=== PATIENT | female | born 1950 | race Native Hawaiian/Other Pacific Islander ===

== ENCOUNTER 2018-06-12 16:39 | Emergency (ER) | payer OTHER ==
[~2018-06-12] VITALS: Ht 167.6 cm; Wt 113.4 kg
[2018-06-12] MEDS ORDERED: LEVO0.1519 PO (16:56)
[2018-06-12] MEDS ORDERED: NEOM0.1O TD (17:18)
[2018-06-12 18:08] LABS: PLATELET COUNT 279 K/uL (152-353)
[2018-06-12 20:19] VITALS: BP 131/83; TEMP 98.3
== END 2018-06-12 20:20 | disposition home or self-care (01) ==
LOC: ED 16:39
DX: S29.012A Strain of muscle and tendon of back wall of thorax, initial encounter (principal); S39.012A Strain of muscle, fascia and tendon of lower back, initial encounter; X50.0XXA Overexertion from strenuous movement or load, initial encounter; Y92.89 Other specified places as the place of occurrence of the external cause; Z79.899 Other long term (current) drug therapy
CPT/HCPCS: 36415; 80053; 81000; 82550; 82553; 84443; 84484; 85027; 85651; 93005; 96374; 99284; J1885

== ENCOUNTER 2018-06-16 15:33 | Emergency (ER) | payer OTHER ==
[~2018-06-16] VITALS: Ht 167.6 cm; Wt 113.4 kg
[~2018-06-16 15:33] MED LIST: LEVO0.1519 PO; NEOM0.1O TD
[2018-06-16 15:36] VITALS: TEMP 98.1
[2018-06-16 16:26] LABS: PLATELET COUNT 252 K/uL (152-353)
[2018-06-16 16:31] LABS: POTASSIUM 4.4 mmol/L (3.6-5.2); SODIUM 140 mmol/L (136-145)
[2018-06-16 18:12] VITALS: BP 148/74
== END 2018-06-16 18:13 | disposition home or self-care (01) ==
LOC: ED 15:33
PROVIDERS: Emergency Medicine
DX: K27.9 Peptic ulcer, site unspecified, unspecified as acute or chronic, without hemorrhage or perforation (principal); B96.81 Helicobacter pylori [H. pylori] as the cause of diseases classified elsewhere
CPT/HCPCS: 36415; 80053; 82550; 84484; 85027; 86318; 93005; 99283

== ENCOUNTER 2018-09-23 10:16 | Emergency (ER) | payer OTHER ==
[~2018-09-23] VITALS: Ht 175.3 cm; Wt 107.0 kg
[2018-09-23 12:25] VITALS: BP 178/91
== END 2018-09-23 12:33 | disposition home or self-care (01) ==
LOC: ED 10:16
DX: S92.355A Nondisplaced fracture of fifth metatarsal bone, left foot, initial encounter for closed fracture (principal); W10.8XXA Fall (on) (from) other stairs and steps, initial encounter; Y92.89 Other specified places as the place of occurrence of the external cause
CPT/HCPCS: 99282